=== PATIENT | female | born 1990 | race African-American/Black ===

== ENCOUNTER 2019-05-31 17:21 | Emergency (ER) | payer OTHER | END 2019-05-31 18:43 | disposition home or self-care (01) | LOC: NAV ERS 17:21 | DX: A09 Infectious gastroenteritis and colitis, unspecified (principal); F17.210 Nicotine dependence, cigarettes, uncomplicated; I10 Essential (primary) hypertension | CPT/HCPCS: 99281 ==

== ENCOUNTER 2020-02-09 14:16 | Emergency (ER) | payer OTHER | END 2020-02-09 15:05 | disposition home or self-care (01) | LOC: NAV ERS 14:16 | DX: K64.4 Residual hemorrhoidal skin tags (principal); I10 Essential (primary) hypertension; F17.210 Nicotine dependence, cigarettes, uncomplicated | CPT/HCPCS: 99283 ==

== ENCOUNTER 2020-03-29 11:17 | Emergency (ER) | payer MEDICAID, OTHER ==
[2020-03-29 12:41] LABS: Bilirubin Negative (Negative); Blood, Urine Moderate (Negative); Clarity SL HAZY (Clear); Glucose, Urine (Dipstick) Negative (Negative); Leukocyte Large (Negative); Nitrite Negative (Negative); Protein, Urine (Dipstick) Negative (Neg-Trace); Urobilinogen 0.2 mg/dL (Less than 2)
[2020-03-29 12:45] LABS: Pregnancy Test - Urine (BHCG) Negative (Negative); Pregu Control Background? CLEAR/WHITE (CLR/WHITE); Pregu Control Bar Appear? YES (CONTROL BAR); Specific Gravity 1.015 (1.002-1.036)
[2020-03-29 12:47] LABS: Bacteria/HPF 1+ HPF (None Seen); Squamous Epithelial 0-3 HPF (0-3); WBC/HPF 21-50 HPF (0-3)
== END 2020-03-29 13:15 | disposition home or self-care (01) ==
LOC: NAV ERS 11:17
DX: N76.2 Acute vulvitis (principal); I10 Essential (primary) hypertension; F17.210 Nicotine dependence, cigarettes, uncomplicated
CPT/HCPCS: 81003; 81015; 81025; 99283